=== PATIENT | male | born 1980 | race African-American/Black ===

== ENCOUNTER 2018-12-27 23:54 | Emergency (ER) | payer SELFPAY ==
[~2018-12-27] VITALS: Ht 182.9 cm; Wt 78.0 kg
--- NOTE | 2018-12-28 00:10 | NUR ---
Pt ambulated into ER c/o of right shoulder pain since 1599 today. Pt rates pain 10/10 and when moving right shoulder. No acute distress noted.
--- NOTE | 2018-12-28 00:14 | NUR ---
Dr Santacruz at bedside for MSE.
[2018-12-28] MEDS ORDERED: IBUPROFEN 800 MG TABLET PO ONE (00:15)
[2018-12-28] MEDS ORDERED: IBUPROFEN 800 MG TABLET ONE (00:20)
[2018-12-28] MEDS ORDERED: HYDROCODONE/APAP 5-325MG TABLET ONE (00:41)
[2018-12-28] MEDS ORDERED: HYDROCODONE/APAP 5-325MG TABLET PO ONE (00:45)
--- NOTE | 2018-12-28 00:53 | NUR ---
Patient discharged to home in stable conditon. Written and verbal after care instructions given. Patient verbalizes understanding of instructions. Pt ambulated out of ER with stable gait. All belongings with pt.
[2018-12-28 00:54] VITALS: BP 115/75
== END 2018-12-28 00:56 | disposition home or self-care (01) ==
LOC: ER 12-28 00:01
DX: S49.91XA Unspecified injury of right shoulder and upper arm, initial encounter (principal); Y04.0XXA Assault by unarmed brawl or fight, initial encounter; Y93.89 Activity, other specified; Y92.89 Other specified places as the place of occurrence of the external cause; Y99.0 Civilian activity done for income or pay
CPT/HCPCS: 73030; A4663